=== PATIENT | female | born 1970 | race Asian ===

== ENCOUNTER 2017-01-12 00:09 | Emergency (ER) | payer SELFPAY ==
[2017-01-12 00:49] VITALS: BP 105/56; PULSE 68; TEMP 97.1; BMI 25.7
--- NOTE | 2017-01-12 01:16 | PDOC ---
History of Present Illness - History of Present Illness Initial Comments: 01/12/17 01:36 The patient is a 46 year old female, with no significant past medical history, who presents to the emergency department for headache and pain to bilateral hands and knees. The patient states she might have tripped and fell, however, she states she can not be sure whether or not she fainted. The patient denies loss of consciousness or head trauma. She denies chest pain, shortness of breath, and dizziness. She denies fever, chills, nausea, vomit, diarrhea and constipation. She denies dysuria, frequency , urgency and hematuria. Allergies: NKDA Social history: denies toxic habits PCP - Dr. Rayo Dailey <Katherine Junior - Last Filed: 01/12/17 02:47> - General History Source: Patient <Michael Garrett - Last Filed: 01/12/17 02:50> - General Chief Complaint: Injury Stated Complaint: FALL, HEAD/KNEE/FOOT INJURY Time Seen by Provider: 01/12/17 01:13 Past History <Katherine Junior - Last Filed: 01/12/17 02:47> - Psycho/Social/Smoking Cessation Hx Suicidal Ideation: No Smoking History: Never smoked Have you smoked in the past 12 months: No Information on smoking cessation initiated: No Hx Alcohol Use: No Drug/Substance Use Hx: No <Michael Garrett - Last Filed: 01/12/17 02:50> - Past Medical History Allergies/Adverse Reactions: Allergies Allergy/AdvReac Type Severity Reaction Status Date / Time No Known Allergies Allergy Verified 01/12/17 00:42 *Physical Exam - Vital Signs Last Vital Signs Temp Pulse Resp BP Pulse Ox 97.1 F L 68 18 105/56 98 01/12/17 00:42 01/12/17 00:42 01/12/17 00:42 01/12/17 00:42 01/12/17 00:42 <Katherine Junior - Last Filed: 01/12/17 02:47> - Vital Signs Last Vital Signs Temp Pulse Resp BP Pulse Ox 97.1 F L 68 18 105/56 98 01/12/17 00:42 01/12/17 00:42 01/12/17 00:42 01/12/17 00:42 01/12/17 00:42 <Michael Garrett - Last Filed: 01/12/17 02:50> ED Treatment Course - ADDITIONAL ORDERS Additional order review: Laboratory Results 01/12/17 01:19 Urine HCG, Qual Negative - RADIOLOGY Radiograph Interpretation: 01/12/17 02:47 EXAM: CT brain without contrast was read by Eitan Vallejo MD 01/12/2017 02:44 EST EXAM DATE AND TIME: 2017-01-12 01:59:57.0 REASON FOR EXAM: Dizziness COMPARISON: No FINDINGS: Normal brain. No acute intracranial abnormality. No hemorrhage. No visible infarct or mass. Osseous structures are intact. <Katherine Junior - Last Filed: 01/12/17 02:47> Medical Decision Making - Medical Decision Making 01/12/17 02:50 Dr. Garrett: The scribe's documentation has been prepared under my direction and personally reviewed by me in its entirery. I confirm that the note above accurately reflects all work, treatment, procedures, and medical decision making performed by me. <Michael Garrett - Last Filed: 01/12/17 02:50> *DC/Admit/Observation/Transfer <Katherine Junior - Last Filed: 01/12/17 02:47> - Discharge Dispostion Admit: No <Michael Garrett - Last Filed: 01/12/17 02:50> Diagnosis at time of Disposition: Closed head injury Qualifiers: Encounter type: initial encounter Qualified Code(s): S09.90XA - Unspecified injury of head, initial encounter - Discharge Dispostion Disposition: HOME Condition at time of disposition: Stable - Patient Instructions Printed Discharge Instructions: DI for Closed Head Injury
== END 2017-01-12 03:28 | disposition home or self-care (01) ==
LOC: JER 00:09
DX: S09.90XA Unspecified injury of head, initial encounter (principal); W01.0XXA Fall on same level from slipping, tripping and stumbling without subsequent striking against object, initial encounter; Y93.01 Activity, walking, marching and hiking; Y92.414 Local residential or business street as the place of occurrence of the external cause; Y99.9 Unspecified external cause status
CPT/HCPCS: 70450-TC; 84703; 99282-25

== ENCOUNTER 2017-01-13 09:46 | Emergency (ER) | payer SELFPAY ==
[2017-01-13 09:54] VITALS: TEMP 97.9; BMI 25.7
[2017-01-13] MEDS ORDERED: traMADol HCL 50 MG TABLET PO ONE (10:33)
[2017-01-13] MEDS ORDERED: KETOROLAC TROMETHAMINE 30 MG/1 ML VIAL IM ONE (10:33)
[2017-01-13] MEDS ORDERED: diazePAM 5 MG TABLET PO ONE (11:15)
--- NOTE | 2017-01-13 11:18 | PDOC ---
History of Present Illness - General Chief Complaint: Back Pain Stated Complaint: LOWER BACK PAIN, NAUSEA Time Seen by Provider: 01/13/17 09:56 History Source: Patient Exam Limitations: No Limitations - History of Present Illness Initial Comments: 01/13/17 11:17 Patient received from fast track, for further review as will become a more extensive workup for back pain. Patient was seen here 2 days ago status post fall, tripped on uneven vega falling forward, with uncertain mechanism. Was unclear as to hit her head but felt that she had a head injury, at time of injury patient was uncertain as if she fainted or there was an LOC. fell forward and struck bilateral knees with ankle pain. has been ambulatory at home but her low back mid back has progressively worsened. is difficult for her to ambulate this morning and when she woke up was unable to walk to the bathroom, had some mild urinary incontinence secondary to pain and spasm. Patient denies numbness or tingling to hands or feet, denies any significant head or neck injury. States pain is primarily to her thoracic to lumbar spinous area. Denies bowel problems or constipation. is not incontinent but because of the pain in the spasmodic pain had some small urinary incontinence this morning. was seen and cleared, no medications were prescribed 2 days ago. Is evaluated Patient is difficult to obtain a history as she appears and complains of significant generalized body aches and pains. 01/13/17 11:21 Occurred: reports: other (2 days ago ) Pain Location: reports: back Method of Injury: Yes: fall Modifying Factors: improves with: None Loss of Consciousness: no loss of consciousness (uncertain) Associated Symptoms (Fall): muscle spasms Past History - Travel Traveled outside of the country in the last 30 days: No Close contact w/someone who was outside of country & ill: No - Past Medical History Allergies/Adverse Reactions: Allergies Allergy/AdvReac Type Severity Reaction Status Date / Time No Known Allergies Allergy Verified 01/13/17 09:51 Home Medications: Ambulatory Orders Cyclobenzaprine HCl [Flexeril 10 mg] 10 mg PO BID PRN #14 tablet 01/13/17 Other medical history: DENIES. - Psycho/Social/Smoking Cessation Hx Suicidal Ideation: No Smoking History: Never smoked Have you smoked in the past 12 months: No Hx Alcohol Use: No Drug/Substance Use Hx: No Trauma Specific PMHX - Complaint Specific PMHX Back Injury: Yes Neck Injury: No Review of Systems - Review of Systems Able to Perform ROS?: Yes Is the patient limited Occitan proficient: Yes Constitutional: Yes: Symptoms Reported, See HPI, Loss of Appetite, Malaise HEENTM: Yes: See HPI. No: Symptoms Reported Respiratory: Yes: See HPI. No: Symptoms reported ABD/GI: Yes: See HPI. No: Symptoms Reported : Yes: See HPI. No: Symptoms Reported Musculoskeletal: Yes: Symptoms Reported, See HPI, Back Pain, Muscle Pain, Muscle Weakness Integumentary: No: Symptoms Reported All Other Systems: Reviewed and Negative *Physical Exam - Vital Signs Last Vital Signs Temp Pulse Resp BP Pulse Ox 97.9 F 82 19 106/66 100 01/13/17 09:51 01/13/17 09:51 01/13/17 09:51 01/13/17 09:51 01/13/17 09:51 - Physical Exam General Appearance: Yes: Nourished, Appropriately Dressed, Apparent Distress, Moderate Distress, Severe Distress HEENT: positive: RUPA, Normal ENT Inspection, TMs Normal, Pharynx Normal Neck: positive: Supple, Other (no cspine pain ). negative: Tender Respiratory/Chest: positive: Lungs Clear, Normal Breath Sounds. negative: Chest Tender Cardiovascular: positive: Regular Rhythm Gastrointestinal/Abdominal: positive: Soft. negative: Tender Musculoskeletal: positive: Normal Inspection, Muscle Spasm (palpable spasm noted in the thoracic spine and extending into the paravertebral lumbar area, worse on the left than the right. Has no true bone tenderness but difficult to examine as patient has multiple areas that complains of pain) Extremity: positive: Normal Capillary Refill, Normal Inspection, Tender (patella , however no crepitus, step-offs, swelling or ecchymoses. No medial or lateral condylar tenderness no instability, no injury noted or point tenderness distal to knee including ankle. Neurovascular intact to foot). negative: Normal Range of Motion, Pedal Edema, Swelling, Calf Tenderness Integumentary: positive: Normal Color, Dry, Warm Neurologic: positive: blood collector II-XII NML intact, Fully Oriented, Alert, Normal Mood/ Affect, Normal Response, Motor Strength 5/5 Progress Note - Progress Note Progress Note: Severe back spasm, will treat with Toradol and Valium and obtain some plain films to rule out any acute frtactures Medical Decision Making - Medical Decision Making 01/13/17 11:29 01/13/17 16:23 X-rays show possible avulsion injury to left knee, consistent with exam of a mild sprained left knee. Praveen wrap and explained to patient. X-ray shows some degenerative disease otherwise negative for fracture. Patient had significant relief with Toradol and by mouth Valium. Will send cyclobenzaprine and instructed makes slightly more dizzy and sleepy but essentially more effective for an antispasmodic. Patient ready for discharge *DC/Admit/Observation/Transfer Diagnosis at time of Disposition: Back muscle spasm Left knee sprain Qualifiers: Encounter type: initial encounter Involved ligament of knee: unspecified ligament Qualified Code(s): S83.92XA - Sprain of unspecified site of left knee, initial encounter - Discharge Dispostion Disposition: HOME Condition at time of disposition: Stable Admit: No - Prescriptions Prescriptions: Cyclobenzaprine HCl [Flexeril 10 mg] 10 mg PO BID PRN #14 tablet PRN Reason: spasm - Referrals Referrals: STAFF,NOT ON [Primary Care Provider] - - Patient Instructions Printed Discharge Instructions: DI for Knee Sprain, DI for Back Spasm Additional Instructions: Rest, no heavy lifting or exercise until pain is resolved Hot soaks to neck and low back as often as possible/hot showers or Jacuzzis No massage or therapy until spasm is gone Continue ibuprofen 2-200 mg tablets every 6 hours for the next 3 days then as needed for pain and swelling Cyclobenzaprine 1-10mg every 8 hours as needed for spasm If not significant improvement within 24 hours with medication and rest regime, followup with private physician for change in medications and /or therapy.
[2017-01-13] MEDS ORDERED: KETOROLAC TROMETHAMINE 30 MG/1 ML VIAL ONE (11:32)
[2017-01-13] MEDS ORDERED: diazePAM 5 MG TABLET ONE (11:32)
[2017-01-13 14:35] LABS: URINE APPEARANCE SLCLOUDY; URINE BILIRUBIN NEGATIVE (NEGATIVE); URINE BLOOD NEGATIVE (NEGATIVE); URINE COLOR YELLOW; URINE GLUCOSE (UA) NEGATIVE (NEGATIVE); URINE KETONE 2+ (NEGATIVE); URINE LEUK ESTERASE NEGATIVE (NEGATIVE); URINE NITRITE NEGATIVE (NEGATIVE); URINE PROTEIN NEGATIVE (NEGATIVE); URINE UROBILINOGEN NEGATIVE E.U./dl (0.2-1.0)
[2017-01-13 17:36] VITALS: BP 119/75; PULSE 76
== END 2017-01-13 16:35 | disposition home or self-care (01) ==
LOC: JER 09:46 → JERFT 09:46 → JER 16:35
PROC: 3E0233Z Introduction of Anti-inflammatory into Muscle, Percutaneous Approach (ICD-10-PCS; principal; 2017-01-13)
DX: S83.92XA Sprain of unspecified site of left knee, initial encounter (principal); M62.830 Muscle spasm of back; X58.XXXA Exposure to other specified factors, initial encounter; Y93.9 Activity, unspecified; Y92.9 Unspecified place or not applicable
CPT/HCPCS: 72100-TC; 73560-TC-LT; 81003; 84703; 99282-25